=== PATIENT | female | born 1945 | race Caucasian/White ===

== ENCOUNTER 2018-02-18 12:08 | Emergency (ER) | payer OTHER ==
[~2018-02-18] VITALS: Ht 157.5 cm; Wt 96.6 kg
[~2018-02-18 12:08] MED LIST: ALBUTEROL SULFAT3 ML NEB; APR50 PO; ASPIR-LOW81 M1 PO; CAT0.1 PO; FERROUS SULFAT325 M2 PO; LAC PO; LEVAQUIN500 MG PO; LOT20 PO; MEDDP PO; METFORMIN500 M1 PO; NIT0.4 SL; PLA75 PO; PRO40 PO; PROVENTIL; TRA50 PO; VITAMIN C250 M1 PO; ZIT250 PO; ZOL50 PO; ZYR10 PO
[2018-02-18 12:14] VITALS: Ht 157.5 cm; Wt 96.6 kg
[2018-02-18 14:26] VITALS: BP 128/76
== END 2018-02-18 14:26 | disposition home or self-care (01) ==
LOC: ED 12:08
DX: J30.9 Allergic rhinitis, unspecified (principal); J04.0 Acute laryngitis; Z76.0 Encounter for issue of repeat prescription; J44.9 Chronic obstructive pulmonary disease, unspecified; K21.9 Gastro-esophageal reflux disease without esophagitis; E11.40 Type 2 diabetes mellitus with diabetic neuropathy, unspecified; I10 Essential (primary) hypertension
CPT/HCPCS: J7512; J7620; Q0092

== ENCOUNTER 2018-02-20 09:15 | Emergency (ER) | payer OTHER ==
[~2018-02-20] VITALS: Ht 157.5 cm; Wt 97.1 kg
[2018-02-20 09:19] VITALS: Ht 157.5 cm; Wt 97.1 kg
[2018-02-20 09:56] LABS: BASOPHIL % 0.6 % (0-2); PLATELET COUNT 313 x10^3mcL (130-400); RED CELL DISTRIBUTION WIDTH 14.3 % (11.5-14.5)
[2018-02-20 10:01] LABS: CALCIUM 8.3 mg/dL (8.5-10.1); CARBON DIOXIDE 28.8 mmol/L (21-32); POTASSIUM SERUM 3.3 mmol/L (3.5-5.1)
[2018-02-20 10:12] LABS: BILIRUBIN TOTAL 0.2 mg/dL (0.20-1.00); T4(THYROXINE) 7.9 ug/dL (4.7-13.3); TOTAL PROTEIN, SERUM 7.9 g/dL (6.4-8.2)
[2018-02-20 10:13] LABS: ALBUMIN 3.3 g/dL (3.4-5.0)
[2018-02-20 10:25] LABS: microscopic required? YES; urine erythrocyte NEGATIVE (NEGATIVE)
[2018-02-20 10:46] LABS: AMPHETAMINE QUAL UR NONE DETECTED (See below)
[2018-02-20 11:52] VITALS: BP 166/99
== END 2018-02-20 11:52 | disposition home or self-care (01) ==
LOC: ED 09:15
PROVIDERS: Emergency Medicine
DX: J44.1 Chronic obstructive pulmonary disease with (acute) exacerbation (principal); I10 Essential (primary) hypertension; E11.9 Type 2 diabetes mellitus without complications; E87.6 Hypokalemia; D64.9 Anemia, unspecified; E78.00 Pure hypercholesterolemia, unspecified; F32.9 Major depressive disorder, single episode, unspecified; G47.30 Sleep apnea, unspecified
CPT/HCPCS: 83880; J2930; J7613; J7644; Q0092

== ENCOUNTER 2020-08-27 21:11 | Emergency (ER) | payer OTHER, MEDICAID, SELFPAY ==
[~2020-08-27] VITALS: Ht 154.9 cm; Wt 87.5 kg
[2020-08-27 21:14] VITALS: BP 175/107; Ht 154.9 cm; Wt 87.5 kg
== END 2020-08-27 21:44 | disposition home or self-care (01) ==
LOC: ED 21:11
DX: U07.1 COVID-19 (principal); B34.9 Viral infection, unspecified; J44.9 Chronic obstructive pulmonary disease, unspecified; I10 Essential (primary) hypertension; K21.9 Gastro-esophageal reflux disease without esophagitis; M19.90 Unspecified osteoarthritis, unspecified site; E11.40 Type 2 diabetes mellitus with diabetic neuropathy, unspecified; Z86.73 Personal history of transient ischemic attack (TIA), and cerebral infarction without residual deficits
CPT/HCPCS: U0003